=== PATIENT | female | born 1930 | race Caucasian/White ===

== ENCOUNTER 2016-11-29 09:25 | Day surgery (SDCO) | payer MEDICARE, OTHER ==
[2016-11-29 11:22] LABS: BASOPHIL 0.4 % (0-2); EOSINOPHIL 2.6 % (0-7); HCT 39.1 % (37.0-47.0); HGB 12.7 g/dl (12.5-16.0); LYMPHOCYTE 28.3 % (15-48); MCH 30.4 pg (25.0-31.0); MCHC 32.5 g/dL (32.0-36.0); MCV 93.5 fL (78.0-100.0); MONOCYTE 10.6 % (0-12); MPV 10.5 fL (6.0-9.5); NEUTROPHIL 58.1 % (41-80); PLT 158 K/uL (150-400); RBC 4.18 M/uL (4.20-5.40); RDW 13.5 % (11.5-14.0); WBC 4.9 K/uL (4.0-10.5)
[2016-11-29 11:38] LABS: CREATININE 1.2 mg/dL (0.5-1.0); INR 1.22 (0.9-1.2); POTASSIUM 3.8 mmol/L (3.5-5.1); PTT 28.6 SECONDS (23.2-31.4)
[2016-11-29 11:51] LABS: BILIRUBIN NEGATIVE (NEGATIVE); BLOOD NEGATIVE Ery/uL (NEGATIVE); CLARITY CLEAR (CLEAR); COLOR YELLOW (YELLOW); GLUCOSE (U) NORMAL (NORMAL); KETONE (U) NEGATIVE (NEGATIVE); LEUKOCYTES NEGATIVE Leu/uL (NEGATIVE); NITRITE NEGATIVE (NEGATIVE); PROTEIN NEGATIVE (NEGATIVE); pH 7.5 (5.0-9.0)
[2016-11-29 13:04] LABS: EOSINOPHIL(M) 6 % (0-7); LYMPHOCYTE(M) 24 % (15-48); MONOCYTE(M) 5 % (0-12); NEUTROPHILS(M) 65 % (41-80); TOTAL CELL COUNT 100
[2016-11-29 13:05] LABS: PLATELET ESTIMATE NORMAL; PLATELET MORPHOLOGY NORMAL
[2016-11-29 13:58] LABS: ALBUMIN 3.8 g/dL (3.4-4.8); BILIRUBIN - DIRECT 0.2 mg/dL (0.0-0.2); BILIRUBIN - TOTAL 0.7 mg/dL (0.1-1.0); GLOBULIN (CALCULATION) 2.1 g/dL (2.2-4.2); TOTAL PROTEIN 5.9 g/dL (6.4-8.3)
[2016-11-30 04:25] LABS: BASOPHIL 0.7 % (0-2); EOSINOPHIL 2.5 % (0-7); HCT 37.5 % (37.0-47.0); LYMPHOCYTE 22.4 % (15-48); MCH 30.3 pg (25.0-31.0); MCV 94.7 fL (78.0-100.0); MONOCYTE 11.9 % (0-12); MPV 10.7 fL (6.0-9.5); NEUTROPHIL 62.5 % (41-80); PLT 157 K/uL (150-400); RBC 3.96 M/uL (4.20-5.40); RDW 13.5 % (11.5-14.0)
[2016-11-30 04:42] LABS: CREATININE 1.3 mg/dL (0.5-1.0); POTASSIUM 3.6 mmol/L (3.5-5.1)
[2016-12-01] MEDS ORDERED: OXY-IR 5MG5 MG PO (14:26)
[2016-12-01] MEDS ORDERED: ELIQUIS2.5 MG PO (14:27)
[2016-12-01] MEDS ORDERED: [UNRECOGNIZED DRUG - SUPPLY] PO (14:27)
[2016-12-01] MEDS ORDERED: PROTONIX 40MG T40 MG PO (14:27)
[2016-12-01] MEDS ORDERED: BUMEX1 MG PO (14:28)
[2016-12-01] MEDS ORDERED: XANAX0.25 MG PO (14:28)
[2016-12-01] MEDS ORDERED: PRAVACHOL20 M1 PO (14:28)
[2016-12-01] MEDS ORDERED: COLACE100 MG PO (14:28)
[2016-12-01] MEDS ORDERED: AMIODARONE HCL200 MG PO (14:28)
== END 2016-12-01 16:28 ==
LOC: FER 09:25 → FTCU 12:58 → FMS 16:25
PROVIDERS: Emergency Medicine; Nurse Practitioner; ADMIT Internal Medicine
DX: S73.101A Unspecified sprain of right hip, initial encounter (principal); S53.402A Unspecified sprain of left elbow, initial encounter; S53.012A Anterior subluxation of left radial head, initial encounter; S70.01XA Contusion of right hip, initial encounter; S50.02XA Contusion of left elbow, initial encounter; W18.11XA Fall from or off toilet without subsequent striking against object, initial encounter; Y92.009 Unspecified place in unspecified non-institutional (private) residence as the place of occurrence of the external cause; G20 Parkinson's disease; E87.6 Hypokalemia; M19.90 Unspecified osteoarthritis, unspecified site; I10 Essential (primary) hypertension; M85.88 Other specified disorders of bone density and structure, other site; Z96.653 Presence of artificial knee joint, bilateral; I48.2 Chronic atrial fibrillation; Z79.01 Long term (current) use of anticoagulants; Z86.718 Personal history of other venous thrombosis and embolism; K58.1 Irritable bowel syndrome with constipation; E11.9 Type 2 diabetes mellitus without complications; Z90.49 Acquired absence of other specified parts of digestive tract; Z90.710 Acquired absence of both cervix and uterus; Z82.49 Family history of ischemic heart disease and other diseases of the circulatory system; Z88.2 Allergy status to sulfonamides; Z88.6 Allergy status to analgesic agent; Z88.5 Allergy status to narcotic agent
CPT/HCPCS: 36415; 36600; 70450; 71010; 73030; 73080; 73502; 73700; 80048; 80076; 81003; 82803; 84484; 85025; 85610; 85730; 87088; 93005; 97110; 97162; 97166; 97530; 97530-GP; 97535; G0378; J1170; J2405